=== PATIENT | male | born 1990 | race Caucasian/White ===

== ENCOUNTER 2021-01-19 14:26 | Emergency (ER) | payer BC ==
[~2021-01-19] VITALS: Ht 175.3 cm; Wt 99.8 kg
--- NOTE | 2021-01-19 14:33 | NUR ---
Bert PETIT via gurney to bed 01.
[2021-01-19 14:37] VITALS: BP 152/100
--- NOTE | 2021-01-19 14:40 | NUR ---
30 YEAR OLD MALE COMPLAINS OF RIGHT HAND PAIN X PRIOR TO ARRIVAL. PT STATES HEAVY OBJECT AT WORK FELL ONTO RIGHT FOREARM/HAND AND HAS HAD PAIN SINCE. NO VISIBLE LACERATION NOTED. CAP REFILL <3 SEC, RADIAL PULSE +2. PT ALERT AND AWAKE, BREATHING EVEN AND UNLABORED, SKIN WARM AND DRY. BED IN LOWEST POSITION, LOCKED, BED RAIL UPX1. PMH - DENIES ALLERGIES - NKA
[2021-01-19] MEDS ORDERED: ONDANSETRON 4 MG ODT PO ONE (14:50)
[2021-01-19] MEDS ORDERED: MORPHINE SULFATE 4 MG/ML SYR IM ONE (14:50)
[2021-01-19] MEDS ORDERED: BACITRACIN OINT 500 UNITS/GM PKT TP ONE (15:20)
[2021-01-19] MEDS ORDERED: ONDA-24 PO (15:39)
[2021-01-19] MEDS ORDERED: ACET-8386 PO (15:39)
[2021-01-19] MEDS ORDERED: IBUP-2213 PO (15:39)
--- NOTE | 2021-01-19 16:20 | NUR ---
VOLAR SPLINT APPLIED TO RIGHT FOREARM AND MADDIE WRAPPED. SPLINT ADDED FOR RIGHT ARM.
[2021-01-19 16:36] VITALS: BP 142/93
--- NOTE | 2021-01-19 16:37 | NUR ---
RADIAL PULSE +2, CAP REFILL <3 SEC AFTER SPLINT
--- NOTE | 2021-01-19 16:37 | NUR ---
Patient discharged with v/s stable. Written and verbal after care instructions about metacarpal fracture given and explained. Patient alert, oriented and verbalized understanding of instructions. Ambulatory with steady gait. All questions addressed prior to discharge. ID band removed. Patient advised to follow up with PMD. Rx of norco, ibuprofen, zofran given. Patient educated on indication of medication including possible reaction and side effects. Opportunity to ask questions provided and answered.
== END 2021-01-19 16:37 | disposition home or self-care (01) ==
LOC: MED 14:26
DX: S62.244A Nondisplaced fracture of shaft of first metacarpal bone, right hand, initial encounter for closed fracture (principal); S63.91XA Sprain of unspecified part of right wrist and hand, initial encounter; S60.416A Abrasion of right little finger, initial encounter; Z79.1 Long term (current) use of non-steroidal anti-inflammatories (NSAID); Z79.899 Other long term (current) drug therapy; Z79.891 Long term (current) use of opiate analgesic; W20.8XXA Other cause of strike by thrown, projected or falling object, initial encounter; Y93.89 Activity, other specified; Y92.89 Other specified places as the place of occurrence of the external cause; Y99.8 Other external cause status
CPT/HCPCS: 29125; 73130; 96372; 99283; J2270; Q0162